=== PATIENT | female | born 1945 | race Two or more races ===

== ENCOUNTER 2016-11-07 19:02 | Emergency (ER) | payer OTHER, MEDICAID ==
[~2016-11-07] VITALS: Ht 157.5 cm; Wt 47.6 kg
[2016-11-08 01:28] LABS: Basophils # (auto) 0 uL; Basophils % (auto) 0.2 % (0.0-2.0); Eosinophils # (auto) 0.1 uL; Eosinophils % (auto) 1.7 % (0.0-7.0); Hemoglobin 12.4 g/dL (12.2-16.2); Lymphocytes # (auto) 1.4 uL; Mean Corpuscular Hemoglobin 29.7 pg (28.0-32.0); Mean Corpuscular Hgb Conc. 32.7 g/dL (32.0-36.0); Mean Corpuscular Volume 90.9 fL (80.0-100.0); Mean Platelet Volume 7.4 fL (7.4-10.4); Monocytes # (auto) 0.4 uL; Neutrophils # (auto) 3.9 uL; Neutrophils % (auto) 67.1 % (37.0-80.0); Platelet Count (auto) 305 10^3/uL (140-450); Red Cell Distribution Width 13.7 % (11.6-16.0); White Blood Cell 5.8 10^3/uL (4.4-10.8)
[2016-11-08 01:36] LABS: Albumin 4.1 g/dL (3.4-5.0); BUN/Creatinine Ratio 31.3; Bilirubin, Total 0.6 mg/dL (0.2-1.0); Total Protein 7.9 g/dL (6.4-8.2); Uric Acid 3.1 mg/dL (2.6-6.0)
[2016-11-08] MEDS: cefTRIAXone 1GM/50ML D5W 50 ML IV ONE ×2 (05:45)
[2016-11-08 06:00] VITALS: BP 145/76
== END 2016-11-08 06:25 | disposition home or self-care (01) ==
LOC: ER 19:02
DX: S96.912A Strain of unspecified muscle and tendon at ankle and foot level, left foot, initial encounter (principal); L03.116 Cellulitis of left lower limb; Z88.0 Allergy status to penicillin; X58.XXXA Exposure to other specified factors, initial encounter; Y93.89 Activity, other specified; Y92.89 Other specified places as the place of occurrence of the external cause; Y99.8 Other external cause status
CPT/HCPCS: 36415; 73700; 80053; 84550; 85025; 96365; 99285; J0696; J7060

== ENCOUNTER 2017-04-23 19:43 | Emergency (ER) | payer OTHER, MEDICAID ==
[~2017-04-23] VITALS: Ht 157.5 cm; Wt 49.0 kg
[2017-04-23 22:29] VITALS: BP 152/62
[2017-04-23] MEDS ORDERED: IBUPROFEN 600 MG TAB PO ONE (22:30)
== END 2017-04-23 22:44 | disposition home or self-care (01) ==
LOC: ER 19:50
DX: S01.01XA Laceration without foreign body of scalp, initial encounter (principal); S00.83XA Contusion of other part of head, initial encounter; Z88.0 Allergy status to penicillin; W18.39XA Other fall on same level, initial encounter; Y93.89 Activity, other specified; Y92.89 Other specified places as the place of occurrence of the external cause; Y99.8 Other external cause status
CPT/HCPCS: 12002; 70450; 70486

== ENCOUNTER 2022-05-02 22:32 | Emergency (ER) | payer OTHER, MEDICAID ==
[~2022-05-02] VITALS: Ht 154.9 cm; Wt 48.2 kg
[2022-05-02] MEDS ORDERED: LIDOCAINE W/ EPINEPHRINE 2% INJ 20ML VIAL ONE (22:55)
[2022-05-02] MEDS ORDERED: LIDOCAINE W/ EPINEPHRINE 1% 20ML VIAL SC ONE (23:00)
[2022-05-02] MEDS ORDERED: LIDOCAINE 2%HCL (LOCAL ANESTH.) INJ 10ml MDV IJ ONE (23:00)
[2022-05-02 23:43] LABS: Basophils # (auto) 0.1 10 ^3/uL (0-0.2); Basophils % (auto) 2.4 % (0.0-2.0); Eosinophils # (auto) 0.1 10 ^3/uL (0-0.8); Eosinophils % (auto) 1.8 % (0.0-7.0); Hematocrit 31.6 % (36.0-46.0); Hemoglobin 10.6 g/dL (12.2-16.2); Lymphocytes # (auto) 0.7 10 ^3/uL (0.4-5.4); Lymphocytes % (auto) 12.4 % (10.0-50.0); Mean Corpuscular Hemoglobin 30.8 pg (28.0-32.0); Mean Corpuscular Hgb Conc. 33.6 g/dL (32.0-36.0); Mean Corpuscular Volume 91.5 fL (80.0-100.0); Monocytes # (auto) 0.3 10 ^3/uL (0-1.3); Monocytes % (auto) 5.1 % (0.0-12.0); Neutrophils # (auto) 4.3 10 ^3/uL (1.6-8.6); Neutrophils % (auto) 78.3 % (37.0-80.0); Nucleated Red Blood Cells % 0.1 %; Red Blood Cells 3.46 10^6/uL (4.0-5.20); Red Cell Distribution Width 13.1 % (11.8-14.3); White Blood Cell 5.5 10^3/uL (4.4-10.8)
[2022-05-02 23:58] LABS: INR 1.06 (0.9-1.15)
[2022-05-03 00:01] LABS: Albumin 3.5 g/dL (3.4-5.0); BUN/Creatinine Ratio 26.2; Calcium 8.1 mg/dL (8.5-10.1); Potassium 3.6 mmol/L (3.5-5.1)
[2022-05-03 00:04] LABS: Bilirubin, Total 0.5 mg/dL (0.2-1.0); Total Protein 6.6 g/dL (6.4-8.2)
[2022-05-03 01:43] LABS: Hemoglobin 9.6 g/dL (12.2-16.2)
[2022-05-03 03:58] VITALS: BP 112/42
== END 2022-05-03 04:40 | disposition home or self-care (01) ==
LOC: ER 22:32
DX: I83.891 Varicose veins of right lower extremity with other complications (principal); I24.8 Other forms of acute ischemic heart disease; Z88.0 Allergy status to penicillin
CPT/HCPCS: 12001; 36415; 71045; 80053; 84484; 85014; 85018; 85025; 85610; 99285; J2001

== ENCOUNTER 2023-12-08 14:46 | Emergency (ER) | payer MEDICARE, MEDICAID ==
[~2023-12-08] VITALS: Ht 154.9 cm; Wt 50.0 kg
[2023-12-08 23:05] VITALS: BP 138/69; PULSE 70; RESP 18; TEMP 98.3; O2SAT 99
== END 2023-12-08 23:37 | disposition home or self-care (01) ==
LOC: ER 14:46
DX: I83.891 Varicose veins of right lower extremity with other complications (principal); Z48.00 Encounter for change or removal of nonsurgical wound dressing